=== PATIENT | female | born 1995 | race Caucasian/White ===

== ENCOUNTER 2020-10-20 10:16 | Emergency (ER) | payer MEDICAID ==
[~2020-10-20] VITALS: Ht 162.6 cm; Wt 72.7 kg
[~2020-10-20 10:16] MED LIST: CYCL-1 PO
[2020-10-20 10:26] VITALS: BP 124/85
[2020-10-20] MEDS ORDERED: OFLO5DRO RIGHTEYE (12:35)
--- NOTE | 2020-10-20 13:00 | NUR ---
PATIENT WAS SEEN AND TREATED PER PROVIDER. DC INSTRUCTIONS GIVEN WITH PRESCRIPTION. DEPARTED AMBULATORY IN GOOD CONDITION.
== END 2020-10-20 12:59 | disposition home or self-care (01) ==
LOC: ER 10:16
DX: H10.9 Unspecified conjunctivitis (principal); H51.9 Unspecified disorder of binocular movement; Z72.89 Other problems related to lifestyle; Z79.2 Long term (current) use of antibiotics; Z79.899 Other long term (current) drug therapy
CPT/HCPCS: 99283